=== PATIENT | female | born 1970 | race Caucasian/White ===

== ENCOUNTER 2024-02-21 06:29 | Emergency (ER) | payer BC ==
[~2024-02-21] VITALS: Ht 165.1 cm; Wt 84.5 kg
[2024-02-21 07:05] LABS: BASOPHILS # (AUTO) 0.1 X10'3 (0-0.2); BASOPHILS % (AUTO) 0.4 % (0-1); EOSINOPHILS % (AUTO) 0.2 % (0-6); HEMATOCRIT 43.8 % (35.0-45.0); HEMOGLOBIN 15.2 g/dl (12.0-16.0); LYMPHOCYTES # (AUTO) 3.2 X10'3 (1.1-4.8); LYMPHOCYTES % (AUTO) 17.8 % (21-51); MEAN CORPUSCULAR HEMOGLOBIN 32.1 PG (27.0-31.0); MEAN CORPUSCULAR HGB CONC 34.7 g/dL (33.0-36.5); MEAN CORPUSCULAR VOLUME 92.5 FL (78-98); MEAN PLATELET VOLUME 8.6 FL (7.4-10.4); MONOCYTES # (AUTO) 0.9 X10'3 (0-0.9); MONOCYTES % (AUTO) 4.9 % (2-12); NEUTROPHILS # (AUTO) 13.9 X10'3 (1.8-7.7); NEUTROPHILS % (AUTO) 76.7 % (42-75); PLATELET COUNT 247 X10'3 (140-440); RED BLOOD COUNT 4.74 X10'6 (4.20-5.60); RED CELL DISTRIBUTION WIDTH 13.7 % (11.5-14.5); WHITE BLOOD COUNT 18.1 X10'3 (4.5-11.0)
[2024-02-21 07:26] VITALS: TEMP 98.6
[2024-02-21] MEDS: aspirin 325mg tablet, delayed-release (Ecotrin) PO ONE (07:26)
[2024-02-21] MEDS: nitroGLYCERIN 0.4mg SUBLingual tab SL PRN (07:26)
[2024-02-21] MEDS: normal saline 1000ML IV soln IVB ONE (07:38)
[2024-02-21 07:55] LABS: D-DIMER 0.48 MG/L FEU (0-0.50)
[2024-02-21 08:15] LABS: ANION GAP 17 (8-16); BLOOD UREA NITROGEN 11 MG/DL (7-18); BUN/CREATININE RATIO 12.8 (10.0-20.0); CALCIUM 9.4 MG/DL (8.5-10.1); CHLORIDE 101 MMOL/L (99-107); CREATININE 0.86 MG/DL (0.40-0.90); GLUCOSE 151 MG/DL (70-104); LIPASE 27 U/L (16-77); PRO BRAIN NATRIURETIC PEPTIDE 38 PG/ML (0-125); SODIUM 137 MMOL/L (135-145); TOTAL CARBON DIOXIDE 19.1 MMOL/L (24-32); eCRCL 67 ML/MIN; eGFR 69 ML/MIN
[2024-02-21] MEDS: morphine 4 MG/ML inj SYRINge IV ONE (08:48)
[2024-02-21] MEDS: ondansetron/PF 4mg/2ml inj IV ONE (08:56)
[2024-02-21] MEDS: midazolam 1 mg/ML 2ml injection IV ONE (09:32)
[2024-02-21] MEDS: LORazepam 1 MG tablet PO ONE (09:45)
[2024-02-21] MEDS: mag hydrox/Alum hydrox/simeth 30ml oral suspension PO ONE (09:45)
[2024-02-21 09:58] LABS: BILIRUBIN,URINE NEGATIVE (Neg); CLARITY,URINE SLIGHTLY CLOUDY (Clear); COLOR,URINE YELLOW (Yellow); GLUCOSE, URINE NEGATIVE (Neg); KETONES,URINE TRACE mg/dl (Neg); LEUKOCYTE ESTERASE ,URINE NEGATIVE (Neg); NITRITES, URINE NEGATIVE (Neg); OCCULT BLOOD,URINE NEGATIVE (Neg); PROTEIN,URINE NEGATIVE (Neg); UROBILINOGEN,URINE 0.2 E.U/dL (0.2-1.0)
[2024-02-21 10:03] LABS: UA COLLECTION TYPE CLN CATCH MIDSTREAM
[2024-02-21 10:04] LABS: BACTERIA,URINE 2+ /HPF (Neg); SQUAMOUS EPITHELIAL CELL,UR MANY /LPF (FEW); WBC,URINE 0-4 /HPF (0-4)
[2024-02-21 10:05] LABS: RBC,URINE 0-2 /HPF (0-2); TRANSITIONAL EPI CELLS,URINE FEW /HPF
[2024-02-21 10:22] LABS: URINE AMPHETAMINE SCREEN NEGATIVE (Neg); URINE BARBITUATE SCREEN NEGATIVE (Neg); URINE BENZODIAZEPINES SCREEN NEGATIVE (Neg); URINE CANNABINOID SCREEN NEGATIVE (Neg); URINE COCAINE SCREEN NEGATIVE (Neg); URINE METHADONE SCREEN NEGATIVE (Neg); URINE OPIATE SCREEN POSITIVE (Neg); URINE PHENCYCLIDINE SCREEN NEGATIVE (Neg)
[2024-02-21] MEDS ORDERED: TRAM50TA2 PO (11:10)
[2024-02-21] MEDS: ketorolac tromethamine 15mg/ml inj. IV ONE (11:38)
[2024-02-21 12:01] VITALS: BP 134/75; PULSE 78; RESP 18; O2SAT 98
== END 2024-02-21 12:05 | disposition home or self-care (01) ==
LOC: ER 06:30
DX: R07.89 Other chest pain (principal); R07.81 Pleurodynia; F41.0 Panic disorder [episodic paroxysmal anxiety]; R00.2 Palpitations; L75.0 Bromhidrosis; I10 Essential (primary) hypertension; F41.9 Anxiety disorder, unspecified; Z90.49 Acquired absence of other specified parts of digestive tract; Z98.890 Other specified postprocedural states; Z72.89 Other problems related to lifestyle; Z88.1 Allergy status to other antibiotic agents; Z88.8 Allergy status to other drugs, medicaments and biological substances
CPT/HCPCS: 36415; 71045; 80048; 80305; 81001; 83690; 83880; 84484; 85025; 85379; 93005; 96361; 96374; 96375; 99285; J1885; J2270; J2405; J7030